=== PATIENT | female | born 1965 | race Caucasian/White ===

== ENCOUNTER 2017-07-20 07:32 | Day surgery (SDC) | payer BC, OTHER ==
[2017-07-20] MEDS ORDERED: LIDOCAINE 2% (SDV) 5 ML INJ (09:18)
[2017-07-20] MEDS ORDERED: PROPOFOL 40 ML (09:18)
[2017-07-20] MEDS ORDERED: PROPOFOL 20 ML (09:44)
== END 2017-07-20 12:32 | disposition home or self-care (01) ==
LOC: GIL 07:32
DX: Z12.11 Encounter for screening for malignant neoplasm of colon (principal); K29.50 Unspecified chronic gastritis without bleeding; K21.0 Gastro-esophageal reflux disease with esophagitis; D12.2 Benign neoplasm of ascending colon; K64.4 Residual hemorrhoidal skin tags; I10 Essential (primary) hypertension
CPT/HCPCS: 43239; 88305; 88312; 88313